=== PATIENT | male | born 2000 | race Caucasian/White ===

== ENCOUNTER 2022-12-07 13:22 | Emergency (ER) | payer OTHER ==
[~2022-12-07] VITALS: Ht 170.2 cm; Wt 60.9 kg
[2022-12-07] MEDS ORDERED: cefTRIAXone 500MG VIAL IM ONE (13:35)
[2022-12-07] MEDS ORDERED: LIDOCAINE 1% SDV 5ML VIAL DILUENT ONE (13:35)
[2022-12-07] MEDS ORDERED: metroNIDAZOLE (FLAGYL) 500MG TABLET PO ONE (13:35)
[2022-12-07] MEDS ORDERED: AZITHROMYCIN 250MG TABLET PO ONE (13:35)
[2022-12-07 13:39] VITALS: BP 123/75
[2022-12-07 14:12] LABS: BASO % 0.6 % (0.0-1.0); EOS # 0.1 10^3/uL (0.0-0.5); EOS % 1.6 % (0.0-3.0); HEMATOCRIT 42.5 % (42.0-52.0); HEMOGLOBIN 14.3 g/dl (13.5-17.5); LYMPH # 1.7 10^3/uL (1.5-5.0); LYMPH % 34.2 % (24.0-44.0); MEAN CORPUSCULAR HEMOGLOBIN 30.7 pg (27.0-33.0); MEAN CORPUSCULAR HGB CONC 33.6 g/dl (32.0-36.5); MEAN CORPUSCULAR VOLUME 91.2 fl (80.0-96.0); MONO # 0.4 10^3/uL (0.0-0.8); MONO % 7.6 % (2.0-8.0); NEUTROPHILS # 2.7 10^3/uL (1.5-8.5); PLATELET COUNT, AUTOMATED 219 10^3/uL (150-450); RED BLOOD COUNT 4.66 10^6/uL (4.30-6.10); WHITE BLOOD COUNT 4.9 10^3/uL (4.0-10.0)
[2022-12-07 14:39] LABS: ALBUMIN 4.6 G/DL (3.2-5.2); ALKALINE PHOSPHATASE 103 U/L (46-116); ALT/SGPT 53 U/L (7.0-40); AST/SGOT 37 U/L (<34); BILIRUBIN,TOTAL 1.8 MG/DL (0.3-1.2); BLOOD UREA NITROGEN 11 MG/DL (9-23); CALCIUM LEVEL 9.2 MG/DL (8.5-10.1); CARBON DIOXIDE LEVEL 26 MMOL/L (20-31); CHLORIDE LEVEL 104 MMOL/L (98-107); CREATININE FOR GFR 0.87 MG/DL (0.70-1.30); GLUCOSE, FASTING 159 MG/DL (60-100); POTASSIUM SERUM 4.1 MMOL/L (3.5-5.1); SODIUM LEVEL 137 MMOL/L (136-145); TOTAL PROTEIN 7.1 G/DL (5.7-8.2)
[2022-12-07 14:40] LABS: HEPATITIS B SURFACE ANTIBODY POSITIVE (POSITIVE)
[2022-12-07 14:52] LABS: HEPATITIS B SURFACE ANTIGEN NEGATIVE (NEGATIVE)
[2022-12-07 15:06] LABS: HIV 1&2 SCREEN ATELLICA NEGATIVE (NEGATIVE)
[2022-12-07 15:13] LABS: HEPATITIS C VIRUS ABY INDEX 0.1 INDEX (<0.8)
== END 2022-12-07 17:16 | disposition home or self-care (01) ==
LOC: M ED 13:22
DX: T76.21XA Adult sexual abuse, suspected, initial encounter (principal); Y92.89 Other specified places as the place of occurrence of the external cause; F17.200 Nicotine dependence, unspecified, uncomplicated; F17.290 Nicotine dependence, other tobacco product, uncomplicated
CPT/HCPCS: 80053; 85025; 86706; 86780; 86803; 87340; 87389; 96372; 99283; J0696

== ENCOUNTER 2023-06-07 15:06 | Emergency (ER) | payer OTHER ==
[~2023-06-07] VITALS: Ht 167.6 cm; Wt 69.5 kg
[2023-06-07 16:38] LABS: RSV AMPLIFICATION NEGATIVE (NEGATIVE)
[2023-06-07] MEDS ORDERED: IBUPROFEN 800 MG TAB PO ONE (16:40)
[2023-06-07 16:46] VITALS: BP 126/82; TEMP 99.4; O2SAT 98
== END 2023-06-07 16:48 | disposition home or self-care (01) ==
LOC: M ED 15:06
DX: J06.9 Acute upper respiratory infection, unspecified (principal); F17.200 Nicotine dependence, unspecified, uncomplicated

== ENCOUNTER 2023-10-31 19:02 | Emergency (ER) | payer OTHER ==
[~2023-10-31] VITALS: Ht 170.2 cm; Wt 69.3 kg
[2023-10-31 20:09] LABS: BASO # 0.1 10^3/uL (0.0-0.2); BASO % 0.6 % (0.0-1.0); EOS % 0.2 % (0.0-3.0); HEMATOCRIT 45.8 % (42.0-52.0); HEMOGLOBIN 16.7 g/dl (13.5-17.5); LYMPH # 3.6 10^3/uL (1.5-5.0); LYMPH % 32.8 % (24.0-44.0); MEAN CORPUSCULAR HEMOGLOBIN 32.2 pg (27.0-33.0); MEAN CORPUSCULAR HGB CONC 36.5 g/dl (32.0-36.5); MEAN CORPUSCULAR VOLUME 88.2 fl (80.0-96.0); MONO # 0.8 10^3/uL (0.0-0.8); MONO % 7.2 % (2.0-8.0); NEUTROPHILS # 6.4 10^3/uL (1.5-8.5); PLATELET COUNT, AUTOMATED 267 10^3/uL (150-450); RED BLOOD COUNT 5.19 10^6/uL (4.30-6.10); WHITE BLOOD COUNT 10.9 10^3/uL (4.0-10.0)
[2023-10-31 20:43] LABS: CK-MB VALUE MASS < 1.0 NG/ML (<3.6)
[2023-10-31 20:45] LABS: BLOOD UREA NITROGEN 11 MG/DL (9-23); CALCIUM LEVEL 8.9 MG/DL (8.5-10.1); CARBON DIOXIDE LEVEL 16 MMOL/L (20-31); CHLORIDE LEVEL 104 MMOL/L (98-107); CREATININE FOR GFR 0.93 MG/DL (0.70-1.30); GLOMERULAR FILTRATION RATE > 60.0 (>60); GLUCOSE, FASTING 96 MG/DL (60-100); POTASSIUM SERUM 3.8 MMOL/L (3.5-5.1); SODIUM LEVEL 142 MMOL/L (136-145)
[2023-10-31 20:50] LABS: CPK CREATINE PHOSPHOKINASE 186 U/L (46-171); MB/CK RELATIVE INDEX 0.53 (< OR =4)
[2023-10-31] MEDS: ONDANSETRON 4MG 2ML VIAL IV ONE (21:19)
[2023-10-31] MEDS: NS 1,000 ML IV ONE ×2 (21:22)
[2023-10-31 21:49] LABS: CK-MB VALUE MASS < 1.0 NG/ML (<3.6)
[2023-10-31 21:55] LABS: CPK CREATINE PHOSPHOKINASE 193 U/L (46-171); MB/CK RELATIVE INDEX 0.51 (< OR =4)
[2023-10-31 23:40] LABS: BLOOD UREA NITROGEN 10 MG/DL (9-23); CALCIUM LEVEL 7.4 MG/DL (8.5-10.1); CARBON DIOXIDE LEVEL 20 MMOL/L (20-31); CHLORIDE LEVEL 106 MMOL/L (98-107); CREATININE FOR GFR 0.85 MG/DL (0.70-1.30); GLOMERULAR FILTRATION RATE > 60.0 (>60); GLUCOSE, FASTING 83 MG/DL (60-100); POTASSIUM SERUM 3.8 MMOL/L (3.5-5.1); SODIUM LEVEL 140 MMOL/L (136-145)
[2023-10-31 23:45] VITALS: BP 130/74; TEMP 97.8; O2SAT 96
[2023-10-31] MEDS ORDERED: ONDA4TAB6 PO (23:52)
[2023-11-01] MEDS: ONDANSETRON 4MG ORAL DISINTEGRATING TAB PO ONE
== END 2023-11-01 00:05 | disposition home or self-care (01) ==
LOC: M ED 19:02
DX: E86.0 Dehydration (principal); R11.2 Nausea with vomiting, unspecified; R00.0 Tachycardia, unspecified; Z79.83 Long term (current) use of bisphosphonates
CPT/HCPCS: 71045; 80048; 82550; 82553; 84484; 85025; 93005; 96361; 96374; 99284; J2405